=== PATIENT | female | born 1940 | race Two or more races ===

== ENCOUNTER → 2017-10-09 | Outpatient (CLI) | payer OTHER | END | disposition home or self-care (01) | LOC: MAMO-SONO 10:20 | DX: Z12.31 Encounter for screening mammogram for malignant neoplasm of breast (principal); Z87.898 Personal history of other specified conditions; N60.11 Diffuse cystic mastopathy of right breast; N60.12 Diffuse cystic mastopathy of left breast ==

== ENCOUNTER 2018-01-28 08:19 | Inpatient (IN) | payer OTHER ==
[~2018-01-28] VITALS: Ht 147.3 cm; Wt 68.0 kg
[2018-01-28] MEDS ORDERED: SINGULAIR10 MG (08:37)
[2018-01-28] MEDS ORDERED: SYNTHROID75 MCG (08:37)
[2018-01-28] MEDS ORDERED: NORVASC2.5 M1 (08:37)
[2018-01-28] MEDS ORDERED: LIPITOR20 MG (08:37)
[2018-02-05] MEDS ORDERED: LIPITOR20 MG PO (11:08)
[2018-02-05] MEDS ORDERED: NORVASC2.5 M1 PO (11:08)
[2018-02-05] MEDS ORDERED: LEVOTHYROXINE75 MCG PO (11:09)
== END 2018-02-05 11:23 | disposition home or self-care (01) | DRG 191 ==
LOC: ER 08:19 → MEDI 17:20
PROC: 4A033R1 Measurement of Arterial Saturation, Peripheral, Percutaneous Approach (ICD-10-PCS; principal; 2018-01-28)
PROC: BW24ZZZ Computerized Tomography (CT Scan) of Chest and Abdomen (ICD-10-PCS; 2018-01-28)
PROC: 3E0F7GC Introduction of Other Therapeutic Substance into Respiratory Tract, Via Natural or Artificial Opening (ICD-10-PCS; 2018-01-28)
DX: J47.1 Bronchiectasis with (acute) exacerbation (principal); R04.2 Hemoptysis; I25.10 Atherosclerotic heart disease of native coronary artery without angina pectoris; F17.210 Nicotine dependence, cigarettes, uncomplicated; E03.8 Other specified hypothyroidism; E09.9 Drug or chemical induced diabetes mellitus without complications; T38.0X5A Adverse effect of glucocorticoids and synthetic analogues, initial encounter

== ENCOUNTER 2018-07-30 12:47 | Outpatient (CLI) | payer OTHER ==
[~2018-07-30 12:47] MED LIST: LEVOTHYROXINE75 MCG PO; LIPITOR20 MG; LIPITOR20 MG PO; NORVASC2.5 M1; NORVASC2.5 M1 PO; SINGULAIR10 MG; SYNTHROID75 MCG
== END 2018-07-30 12:51 | disposition home or self-care (01) ==
LOC: RAD 12:47
DX: M54.5 Low back pain (principal); M54.31 Sciatica, right side

== ENCOUNTER 2018-09-12 09:59 | Outpatient (CLI) | payer OTHER | END 2018-09-12 10:05 | disposition home or self-care (01) | LOC: RAD 09:59 | DX: M54.5 Low back pain (principal); M54.6 Pain in thoracic spine; M25.561 Pain in right knee; M22.91 Unspecified disorder of patella, right knee; M25.861 Other specified joint disorders, right knee ==

== ENCOUNTER 2019-01-13 09:44 | Outpatient (CLI) | payer OTHER | END 2019-01-13 09:46 | disposition home or self-care (01) | LOC: RAD 09:44 | DX: J20.0 Acute bronchitis due to Mycoplasma pneumoniae (principal) ==

== ENCOUNTER 2019-04-20 11:16 | Emergency (ER) | payer OTHER ==
[~2019-04-20] VITALS: Ht 157.5 cm; Wt 61.2 kg
== END 2019-04-20 14:39 | disposition home or self-care (01) ==
LOC: ER 11:16
DX: S52.592A Other fractures of lower end of left radius, initial encounter for closed fracture (principal); S52.512A Displaced fracture of left radial styloid process, initial encounter for closed fracture; W01.198A Fall on same level from slipping, tripping and stumbling with subsequent striking against other object, initial encounter; Y93.01 Activity, walking, marching and hiking; Y92.018 Other place in single-family (private) house as the place of occurrence of the external cause; Y99.8 Other external cause status

== ENCOUNTER → 2019-09-04 08:44 | Outpatient (CLI) | payer OTHER | END | disposition home or self-care (01) | LOC: LAB 08:44 | DX: D50.8 Other iron deficiency anemias (principal); N30.20 Other chronic cystitis without hematuria; I10 Essential (primary) hypertension; R73.09 Other abnormal glucose ==

== ENCOUNTER 2019-09-04 13:32 | Outpatient (CLI) | payer OTHER | END 2019-09-04 13:35 | disposition home or self-care (01) | LOC: SONOGRAMA 13:32 | DX: N30.20 Other chronic cystitis without hematuria (principal) ==

== ENCOUNTER → 2019-10-24 | Outpatient (CLI) | payer OTHER | END | disposition home or self-care (01) | LOC: NUCLEAR 11:00 | DX: M85.89 Other specified disorders of bone density and structure, multiple sites (principal); Z13.820 Encounter for screening for osteoporosis ==

== ENCOUNTER → 2020-07-08 | Outpatient (CLI) | payer OTHER | END | disposition home or self-care (01) | LOC: TOM 15:00 → MAMO-SONO 08-02 13:15 | PROVIDERS: ATTEND Internal Medicine Cardiovascular Disease | DX: K57.90 Diverticulosis of intestine, part unspecified, without perforation or abscess without bleeding (principal); R91.1 Solitary pulmonary nodule; K42.9 Umbilical hernia without obstruction or gangrene; R10.84 Generalized abdominal pain ==

== ENCOUNTER 2020-08-02 11:38 | Outpatient (CLI) | payer OTHER | END 2020-08-02 11:45 | disposition home or self-care (01) | LOC: MAMO-SONO 11:38 | PROVIDERS: ATTEND Family Medicine | DX: N60.12 Diffuse cystic mastopathy of left breast (principal); N60.11 Diffuse cystic mastopathy of right breast; Z12.31 Encounter for screening mammogram for malignant neoplasm of breast ==

== ENCOUNTER → 2021-03-28 10:20 | Outpatient (CLI) | payer OTHER ==
[~2021-03-28 10:20] MED LIST changes: +CYMBALTA60 MG PO; +GABAPENTIN300 M2 PO
== END | disposition home or self-care (01) ==
LOC: RAD 10:20
DX: J47.0 Bronchiectasis with acute lower respiratory infection (principal); I10 Essential (primary) hypertension

== ENCOUNTER 2021-04-26 15:56 | Outpatient (CLI) | payer OTHER | END 2021-04-26 15:58 | disposition home or self-care (01) | LOC: LAB 15:56 | PROVIDERS: ATTEND Family Medicine | DX: J90 Pleural effusion, not elsewhere classified (principal) ==

== ENCOUNTER 2021-04-29 09:35 | Outpatient (CLI) | payer OTHER | END 2021-04-29 09:40 | disposition home or self-care (01) | LOC: TOM 09:35 | PROVIDERS: ATTEND Family Medicine | DX: Q33.0 Congenital cystic lung (principal); J90 Pleural effusion, not elsewhere classified ==

== ENCOUNTER 2022-03-24 13:00 | Outpatient (CLI) | payer OTHER | END 2022-03-24 13:01 | disposition home or self-care (01) | LOC: NUCLEAR 13:00 | PROVIDERS: ATTEND Family Medicine | DX: G31.84 Mild cognitive impairment of uncertain or unknown etiology (principal) | CPT/HCPCS: 78803; A9557 ==

== ENCOUNTER 2022-03-29 11:01 | Outpatient (CLI) | payer OTHER | END 2022-03-29 11:11 | disposition home or self-care (01) | LOC: LAB 11:01 | PROVIDERS: ATTEND Family Medicine | DX: D50.9 Iron deficiency anemia, unspecified (principal); N30.00 Acute cystitis without hematuria; I11.9 Hypertensive heart disease without heart failure; E78.00 Pure hypercholesterolemia, unspecified; E03.9 Hypothyroidism, unspecified; G31.84 Mild cognitive impairment of uncertain or unknown etiology; Z12.11 Encounter for screening for malignant neoplasm of colon; Z81.8 Family history of other mental and behavioral disorders ==

== ENCOUNTER → 2022-07-26 11:30 | Outpatient (CLI) | payer OTHER | END | disposition home or self-care (01) | LOC: LAB 11:30 | PROVIDERS: ATTEND Specialist | DX: D64.9 Anemia, unspecified (principal); J45.998 Other asthma ==

== ENCOUNTER → 2022-07-27 | Outpatient (CLI) | payer OTHER ==
[~2022-07-27] MED LIST changes: +DULOXETINE HCL60 MG; +LOSARTAN POTASS25 MG; +NAPROXEN500 MG; +RIVASTIGMINE4.5 MG; +ROSUVASTATIN CA10 MG
== END | disposition home or self-care (01) ==
LOC: TOM 11:19
PROVIDERS: ATTEND Specialist
DX: K57.32 Diverticulitis of large intestine without perforation or abscess without bleeding (principal)
CPT/HCPCS: 74177; Q9965

== ENCOUNTER 2022-07-28 09:48 | Inpatient (IN) | payer OTHER ==
[~2022-07-28] VITALS: Ht 121.9 cm; Wt 63.5 kg
[~2022-07-28 09:48] MED LIST changes: -DULOXETINE HCL60 MG; -LOSARTAN POTASS25 MG; -NAPROXEN500 MG; -RIVASTIGMINE4.5 MG; -ROSUVASTATIN CA10 MG
[2022-08-01] MEDS ORDERED: RIVASTIGMINE4.5 MG (11:40)
[2022-08-01] MEDS ORDERED: ROSUVASTATIN CA10 MG (11:40)
[2022-08-01] MEDS ORDERED: NAPROXEN500 MG (11:40)
[2022-08-01] MEDS ORDERED: LOSARTAN POTASS25 MG (11:40)
[2022-08-01] MEDS ORDERED: DULOXETINE HCL60 MG (11:41)
== END 2022-08-09 21:46 | disposition home or self-care (01) | DRG 392 ==
LOC: ER 09:48 → SURH 19:57 → SEC-K 19:57 → SURH 20:12
PROVIDERS: ADMIT Specialist; ATTEND Specialist
PROC: 02HV33Z Insertion of Infusion Device into Superior Vena Cava, Percutaneous Approach (ICD-10-PCS; 2022-07-31)
PROC: BW21YZZ Computerized Tomography (CT Scan) of Abdomen and Pelvis using Other Contrast (ICD-10-PCS; principal; 2022-08-01)
PROC: 3E0F7GC Introduction of Other Therapeutic Substance into Respiratory Tract, Via Natural or Artificial Opening (ICD-10-PCS; 2022-08-07)
DX: K52.89 Other specified noninfective gastroenteritis and colitis (principal); K57.92 Diverticulitis of intestine, part unspecified, without perforation or abscess without bleeding; J44.1 Chronic obstructive pulmonary disease with (acute) exacerbation; K59.01 Slow transit constipation; M79.7 Fibromyalgia; I25.10 Atherosclerotic heart disease of native coronary artery without angina pectoris; I10 Essential (primary) hypertension; D72.828 Other elevated white blood cell count; E03.8 Other specified hypothyroidism; E78.49 Other hyperlipidemia; Z20.822 Contact with and (suspected) exposure to COVID-19

== ENCOUNTER 2022-08-20 14:07 | Emergency (ER) | payer OTHER ==
[~2022-08-20] VITALS: Ht 157.5 cm; Wt 63.5 kg
[~2022-08-20 14:07] MED LIST changes: +DULOXETINE HCL60 MG; +LOSARTAN POTASS25 MG; +NAPROXEN500 MG; +RIVASTIGMINE4.5 MG; +ROSUVASTATIN CA10 MG
== END 2022-08-21 | disposition home or self-care (01) ==
LOC: ER 14:07
DX: N30.90 Cystitis, unspecified without hematuria (principal); R10.2 Pelvic and perineal pain; Z20.822 Contact with and (suspected) exposure to COVID-19

== ENCOUNTER 2022-09-15 10:16 | Outpatient (CLI) | payer OTHER | END 2022-09-15 10:27 | disposition home or self-care (01) | LOC: TOM 10:16 | PROVIDERS: ATTEND Specialist | DX: K52.89 Other specified noninfective gastroenteritis and colitis (principal); N32.0 Bladder-neck obstruction; K57.92 Diverticulitis of intestine, part unspecified, without perforation or abscess without bleeding ==

== ENCOUNTER 2022-09-18 11:25 | Outpatient (CLI) | payer OTHER | END 2022-09-18 11:26 | disposition home or self-care (01) | LOC: LAB 11:25 | PROVIDERS: ATTEND Specialist | DX: D64.9 Anemia, unspecified (principal); E11.00 Type 2 diabetes mellitus with hyperosmolarity without nonketotic hyperglycemic-hyperosmolar coma (NKHHC); N39.0 Urinary tract infection, site not specified ==

== ENCOUNTER 2023-10-04 12:54 | Emergency (ER) | payer OTHER ==
[~2023-10-04] VITALS: Ht 149.9 cm; Wt 63.5 kg
[2023-10-04] MEDS ORDERED: KETOROLAC TROMETHAMINE 15 MG VIAL IM STA (14:10)
[2023-10-04] MEDS ORDERED: NAPROXEN SODIU375 M1 PO (14:23)
== END 2023-10-04 14:43 | disposition home or self-care (01) ==
LOC: ER 12:54
DX: M79.7 Fibromyalgia (principal); F32.89 Other specified depressive episodes; M54.50 Low back pain, unspecified; I25.10 Atherosclerotic heart disease of native coronary artery without angina pectoris
CPT/HCPCS: 96372; 99282; J1885

== ENCOUNTER 2024-07-14 14:26 | Outpatient (CLI) | payer OTHER ==
[~2024-07-14 14:26] MED LIST changes: +MELOXICAM15 MG PO; +NAPROXEN SODIU375 M1 PO
[2024-07-14 16:29] LABS: C-REACTIVE PROTEIN 0.32 MG/DL (0.00-0.29)
[2024-07-15 14:19] LABS: VITAMIN D3 25 HYDROXY 30.65 ng/ml (30-120)
== END 2024-07-14 14:33 | disposition home or self-care (01) ==
LOC: LAB 14:26
PROVIDERS: ATTEND Physical Medicine & Rehabilitation
DX: M54.50 Low back pain, unspecified (principal); M79.10 Myalgia, unspecified site

== ENCOUNTER 2024-12-09 11:26 | Outpatient (CLI) | payer OTHER | END 2024-12-09 11:28 | disposition home or self-care (01) | LOC: NUCLEAR 11:26 | PROVIDERS: ATTEND Specialist | DX: M81.0 Age-related osteoporosis without current pathological fracture (principal) ==

== ENCOUNTER 2024-12-19 11:47 | Outpatient (CLI) | payer OTHER | END 2024-12-19 11:49 | disposition home or self-care (01) | LOC: RAD 11:47 | DX: S42.322A Displaced transverse fracture of shaft of humerus, left arm, initial encounter for closed fracture (principal); X58.XXXA Exposure to other specified factors, initial encounter; Y93.9 Activity, unspecified; Y92.9 Unspecified place or not applicable; Y99.9 Unspecified external cause status ==

== ENCOUNTER 2025-05-20 13:10 | Outpatient (CLI) | payer OTHER | END 2025-05-20 13:14 | disposition home or self-care (01) | LOC: TOM 13:10 | PROVIDERS: ATTEND Specialist | DX: M51.06 Intervertebral disc disorders with myelopathy, lumbar region (principal); E03.9 Hypothyroidism, unspecified ==